=== PATIENT | male | born 2000 | race Two or more races ===

== ENCOUNTER 2023-01-18 21:34 | Emergency (ER) | payer OTHER ==
[~2023-01-18] VITALS: Ht 188 cm; Wt 99.8 kg
== END 2023-01-18 22:51 | disposition home or self-care (01) ==
LOC: ER 21:34 → EMR PED 21:34
DX: S09.8XXA Other specified injuries of head, initial encounter (principal); X58.XXXA Exposure to other specified factors, initial encounter; Y93.89 Activity, other specified; Y92.832 Beach as the place of occurrence of the external cause; Y99.8 Other external cause status